=== PATIENT | male | born 1960 | race Caucasian/White ===

== ENCOUNTER 2021-01-02 15:05 | Inpatient (IN) ==
[2021-01-02 16:03] LABS: Appearance Urine Clear (Clear); Bilirubin Urine Negative (Negative); Blood Urine Negative (Negative); Color Urine Yellow; Glucose Urine UA Negative (Negative); Ketones Urine Trace (Negative); Leukocyte Esterase Urine Negative (Negative); Nitrite Urine Negative (Negative); Protein Urine Negative (Negative); Urobilinogen Urine Negative (Negative)
[2021-01-02 16:11] LABS: Basophils # (auto) 0.03 K/uL (0-0.2); Basophils % (auto) 0.3 %; Eosinophils # (auto) 0.07 K/uL (0-0.5); Eosinophils % (auto) 0.7 %; Hematocrit (blood only) 47.4 % (42-52); Hemoglobin 16.3 g/dL (14.0-18.0); Immature Granulocytes # (auto) 0.03 K/uL (0.00-0.02); Immature Granulocytes % (auto) 0.3 %; Lymphocytes # (auto) 2.07 K/uL (1.2-3.4); Lymphocytes % (auto) 21.5 %; Mean Corpuscular Hemoglobin 30.4 pg (25-34); Mean Corpuscular Hgb Conc 34.4 g/dL (32-36); Mean Corpuscular Volume 88.3 fL (80-100); Mean Platelet Volume 9.8 fL (7.4-10.4); Monocytes # (auto) 0.86 K/uL (0.11-0.59); Monocytes % (auto) 8.9 %; Neutrophils # (auto) 6.58 K/uL (1.4-6.5); Neutrophils % (auto) 68.3 %; Platelet Count 311 K/uL (130-400); RDW Coefficient of Variation 13.2 % (11.5-14.5); RDW Standard Deviation 42.6 fL (36.4-46.3); Red Blood Count 5.37 M/uL (4.7-6.1); White Blood Count 9.64 K/uL (4.8-10.8)
--- NOTE | 2021-01-02 16:30 | Emergency Department Note ---
History of Present Illness General Chief complaint: Mental Health Evaluation Stated complaint: DRUG/ ALCOHOL SCREENING Time Seen by Provider: 01/02/21 15:47 Source: patient Mode of arrival: ambulatory Limitations: no limitations History of Present Illness Provider complaint: mental health evaluation and screening This is a 60-year-old male presents the emergency department with family at bedside for a mental health evaluation. Patient was attempting to contact outside mental health providers due to concern for worsening depression and suicidal ideation. Patient vocalized to his brother suicidal ideation with a plan to go to a local gun range and shoot himself. Patient states he does have a chronic history of depression and used to take Wellbutrin for this. Patient states he has had passive suicidal ideation in the past. Patient recently has been using alcohol again and does have a prior history of alcohol abuse. He states he had been sober for 9 months prior to relapsing. He feels a lot of this was due to loss of employment, loss of residence, the recent of his . Patient denies any recent recreational drug use. States his last drink was this morning. States he typically drinks a 12 pack of beer. Pt seen during a time of high acuity and national emergency pandemic while wearing PPE. Home Medications Medication Instructions Recorded Confirmed Type bupropion HCl 150 mg PO DAILY 01/02/21 01/02/21 History Past Med/Surg History Medical History Alcohol abuse Depression Social History Smoking Status: Current every day smoker Preferred Language: French Feels Safe at Home: Yes Review of Systems See HPI for pertinent positives & negatives. and A total of 10 systems reviewed and were otherwise negative All systems reviewed & are unremarkable except as noted in HPI & below Physical Exam Vital Signs Vital Signs - 24 hr 01/02/21 23:30 01/03/21 08:14 Pulse Rate [Right Finger] 63 70 Respiratory Rate 20 17 Blood Pressure [Right Arm] 151/89 H 146/89 H Blood Pressure Mean [Right Arm] 109 108 Pulse Oximetry 99 97 Oxygen Delivery Method Room Air Room Air GENERAL: alert, well appearing, well nourished, no distress, non-toxic EYE EXAM: normal conjunctiva, PERRL and EOM's grossly intact OROPHARYNX: no exudate, no erythema, lips, buccal mucosa, and tongue normal and mucous membranes are moist NECK: supple, no nuchal rigidity, no adenopathy, non-tender LUNGS: Clear to auscultation. Normal chest wall mechanics, no w/r/r HEART: no murmurs, S1 normal and S2 normal ABDOMEN: abdomen soft, non-tender, normo-active bowel sounds, no masses, no rebound or guarding. BACK: Back is symmetrical on inspection and there is no deformity, no midline tenderness, no CVA tenderness. SKIN: no rashes and no bruising UPPER EXTREMITIES: upper extremities are grossly normal. FROM, nml pulses b/l. LOWER EXTREMITIES: No pitting edema. FROM, nml pulses b/l. NEURO EXAM: Normal sensorium, cranial nerves II-XII grossly intact, normal speech, no gross weakness of arms, no gross weakness of legs. Gross sensation intact. Course Course 1935: Patient was seen and evaluated by psychiatric skilled nursing case manager and referred to 3 S. Administered Medications Bupropion HCl (Bupropion Sr 150 Mg Tabcr) 150 mg PO DAILY DANIELA Stop: 02/02/21 15:29 Last Admin: 01/03/21 16:00 Dose: 150 mg Documented by: [id number] Nicotine (Nicotine 14 Mg/24 Hr Patch) 14 mg TD QAM DANIELA Stop: 02/02/21 08:59 Last Admin: 01/03/21 08:35 Dose: 14 mg Documented by: [id number] Non-Formulary Medication (Bupropion Hcl) 150 mg PO DAILY DANIELA Stop: 02/02/21 08:59 Last Admin: 01/03/21 14:26 Dose: Not Given Documented by: [id number] Discontinued Medications Lorazepam (Lorazepam 1 Mg Tab) 1 mg SL NOW STA Stop: 01/03/21 08:18 Last Admin: 01/03/21 08:35 Dose: 1 mg Documented by: [id number] Medical Decision Making Differential Diagnosis Differential diagnoses considered include mood disorder, infection, hypoglycemia, electrolyte abnormalities, cardiac sources, intracerebral event, toxicologic, neurologic, as well as others. Medical Records Attestation: I reviewed the patient's medical records. Home Medications Current Medication List: was personally reviewed by me Laboratory Data Attestation: I reviewed the patient's lab results. Result diagrams: 01/02/21 15:52 01/02/21 15:52 Lab Results 01/02/21 01/02/21 01/02/21 Range/Units 15:50 15:50 15:52 WBC 9.64 (4.8-10.8) K/uL RBC 5.37 (4.7-6.1) M/uL Hgb 16.3 (14.0-18.0) g/dL Hct 47.4 (42-52) % MCV 88.3 (80-100) fL MCH 30.4 (25-34) pg MCHC 34.4 (32-36) g/dL RDW Std Deviation 42.6 (36.4-46.3) fL RDW Coeff of Dean 13.2 (11.5-14.5) % Plt Count 311 (130-400) K/uL MPV 9.8 (7.4-10.4) fL Immature Gran % (Auto) 0.3 % Neut % (Auto) 68.3 % Lymph % (Auto) 21.5 % [place] % (Auto) 8.9 % Eos % (Auto) 0.7 % Baso % (Auto) 0.3 % Neut # (Auto) 6.58 H (1.4-6.5) K/uL Lymph # (Auto) 2.07 (1.2-3.4) K/uL [place] # (Auto) 0.86 H (0.11-0.59) K/uL Eos # (Auto) 0.07 (0-0.5) K/uL Baso # (Auto) 0.03 (0-0.2) K/uL Immature Gran # (Auto) 0.03 H (0.00-0.02) K/uL Sodium (136-145) mmol/L Potassium (3.5-5.1) mmol/L Chloride (98-107) mmol/L Carbon Dioxide (21-32) mmol/L Anion Gap (3-11) BUN (7-18) mg/dl Creatinine (0.6-1.4) mg/dl Est Cr Clr Drug Dosing ml/min Est GFR ( Amer) ml/min Est GFR (Non-Af Amer) ml/min BUN/Creatinine Ratio (10-20) Glucose (70-99) mg/dl Calcium (8.5-10.1) mg/dl Total Bilirubin (0.2-1) mg/dl AST (15-37) U/L ALT (12-78) U/L Alkaline Phosphatase (45-117) U/L Total Protein (6.4-8.2) gm/dl Albumin (3.4-5.0) gm/dl Globulin (2.5-4.0) gm/dl Albumin/Globulin Ratio (0.9-2) TSH (0.300-4.500) uIu/ml Specimen Hemolysis Urine Color Yellow Urine Appearance Clear (Clear) Urine pH 5.0 (4.5-7.5) Ur Specific [place] 1.010 (1.000-1.030) Urine Protein Negative (Negative) Urine Glucose (UA) Negative (Negative) Urine Ketones Trace H (Negative) Urine Blood Negative (Negative) Urine Nitrite Negative (Negative) Urine Bilirubin Negative (Negative) Urine Urobilinogen Negative (Negative) Ur Leukocyte Esterase Negative (Negative) Salicylates (2.8-20) mg/dl Urine Opiates Screen Neg (Neg) Ur Methadone, Qual Neg (Neg) Acetaminophen (10-30) ug/ml Urine Barbiturates Neg (Neg) Ur Phencyclidine (PCP) Neg (Neg) U Amphetamin/Meth Scrn Neg (Neg) MDMA (Ecstasy) Screen Neg (Neg) U Benzodiazepines Scrn Neg (Neg) Ur Cocaine Metabolite Neg (Neg) U Marijuana (THC) Screen Neg (Neg) Ethyl Alcohol mg/dL (0-3) mg/dl COVID-19 Eval Order SARS-CoV-2 (PCR) (Negative) 01/02/21 01/02/21 01/02/21 Range/Units 15:52 15:52 15:52 WBC (4.8-10.8) K/uL RBC (4.7-6.1) M/uL Hgb (14.0-18.0) g/dL Hct (42-52) % MCV (80-100) fL MCH (25-34) pg MCHC (32-36) g/dL RDW Std Deviation (36.4-46.3) fL RDW Coeff of Dean (11.5-14.5) % Plt Count (130-400) K/uL MPV (7.4-10.4) fL Immature Gran % (Auto) % Neut % (Auto) % Lymph % (Auto) % [place] % (Auto) % Eos % (Auto) % Baso % (Auto) % Neut # (Auto) (1.4-6.5) K/uL Lymph # (Auto) (1.2-3.4) K/uL [place] # (Auto) (0.11-0.59) K/uL Eos # (Auto) (0-0.5) K/uL Baso # (Auto) (0-0.2) K/uL Immature Gran # (Auto) (0.00-0.02) K/uL Sodium 138 (136-145) mmol/L Potassium 4.2 (3.5-5.1) mmol/L Chloride 105 (98-107) mmol/L Carbon Dioxide 23 (21-32) mmol/L Anion Gap 10.0 (3-11) BUN 10 (7-18) mg/dl Creatinine 0.73 (0.6-1.4) mg/dl Est Cr Clr Drug Dosing 116.6 ml/min Est GFR ( Amer) 116.0 ml/min Est GFR (Non-Af Amer) 100.1 ml/min BUN/Creatinine Ratio 13.2 (10-20) Glucose 99 (70-99) mg/dl Calcium 9.3 (8.5-10.1) mg/dl Total Bilirubin 0.4 (0.2-1) mg/dl AST 30 (15-37) U/L ALT 53 (12-78) U/L Alkaline Phosphatase 115 (45-117) U/L Total Protein 8.4 H (6.4-8.2) gm/dl Albumin 4.1 (3.4-5.0) gm/dl Globulin 4.3 H (2.5-4.0) gm/dl Albumin/Globulin Ratio 0.9 (0.9-2) TSH 2.090 (0.300-4.500) uIu/ml Specimen Hemolysis Urine Color Urine Appearance (Clear) Urine pH (4.5-7.5) Ur Specific [place] (1.000-1.030) Urine Protein (Negative) Urine Glucose (UA) (Negative) Urine Ketones (Negative) Urine Blood (Negative) Urine Nitrite (Negative) Urine Bilirubin (Negative) Urine Urobilinogen (Negative) Ur Leukocyte Esterase (Negative) Salicylates 2.7 L (2.8-20) mg/dl Urine Opiates Screen (Neg) Ur Methadone, Qual (Neg) Acetaminophen < 2 L (10-30) ug/ml Urine Barbiturates (Neg) Ur Phencyclidine (PCP) (Neg) U Amphetamin/Meth Scrn (Neg) MDMA (Ecstasy) Screen (Neg) U Benzodiazepines Scrn (Neg) Ur Cocaine Metabolite (Neg) U Marijuana (THC) Screen (Neg) Ethyl Alcohol mg/dL 7.9 H (0-3) mg/dl COVID-19 Eval Order SARS-CoV-2 (PCR) (Negative) 01/02/21 01/02/21 Range/Units 17:55 17:55 WBC (4.8-10.8) K/uL RBC (4.7-6.1) M/uL Hgb (14.0-18.0) g/dL Hct (42-52) % MCV (80-100) fL MCH (25-34) pg MCHC (32-36) g/dL RDW Std Deviation (36.4-46.3) fL RDW Coeff of Dean (11.5-14.5) % Plt Count (130-400) K/uL MPV (7.4-10.4) fL Immature Gran % (Auto) % Neut % (Auto) % Lymph % (Auto) % [place] % (Auto) % Eos % (Auto) % Baso % (Auto) % Neut # (Auto) (1.4-6.5) K/uL Lymph # (Auto) (1.2-3.4) K/uL [place] # (Auto) (0.11-0.59) K/uL Eos # (Auto) (0-0.5) K/uL Baso # (Auto) (0-0.2) K/uL Immature Gran # (Auto) (0.00-0.02) K/uL Sodium (136-145) mmol/L Potassium (3.5-5.1) mmol/L Chloride (98-107) mmol/L Carbon Dioxide (21-32) mmol/L Anion Gap (3-11) BUN (7-18) mg/dl Creatinine (0.6-1.4) mg/dl Est Cr Clr Drug Dosing ml/min Est GFR ( Amer) ml/min Est GFR (Non-Af Amer) ml/min BUN/Creatinine Ratio (10-20) Glucose (70-99) mg/dl Calcium (8.5-10.1) mg/dl Total Bilirubin (0.2-1) mg/dl AST (15-37) U/L ALT (12-78) U/L Alkaline Phosphatase (45-117) U/L Total Protein (6.4-8.2) gm/dl Albumin (3.4-5.0) gm/dl Globulin (2.5-4.0) gm/dl Albumin/Globulin Ratio (0.9-2) TSH (0.300-4.500) uIu/ml Specimen Hemolysis Urine Color Urine Appearance (Clear) Urine pH (4.5-7.5) Ur Specific [place] (1.000-1.030) Urine Protein (Negative) Urine Glucose (UA) (Negative) Urine Ketones (Negative) Urine Blood (Negative) Urine Nitrite (Negative) Urine Bilirubin (Negative) Urine Urobilinogen (Negative) Ur Leukocyte Esterase (Negative) Salicylates (2.8-20) mg/dl Urine Opiates Screen (Neg) Ur Methadone, Qual (Neg) Acetaminophen (10-30) ug/ml Urine Barbiturates (Neg) Ur Phencyclidine (PCP) (Neg) U Amphetamin/Meth Scrn (Neg) MDMA (Ecstasy) Screen (Neg) U Benzodiazepines Scrn (Neg) Ur Cocaine Metabolite (Neg) U Marijuana (THC) Screen (Neg) Ethyl Alcohol mg/dL (0-3) mg/dl COVID-19 Eval Order Covid19 at [facility] SARS-CoV-2 (PCR) NEGATIVE (Negative) MDM Narrative Patient here voluntarily due to worsening depression, several recent stressors, and history of alcohol abuse. Patient is here with family. Patient medically cleared and evaluated by case management for mental health. Patient referred to [facility]. Patient signed out to Dr. Workman is [facility]. was evaluating the patient for possible inpatient placement. Patient remains voluntary at this time. Impression & Plan Depression, Alcohol abuse, Suicidal ideation Discharge Plan Visit Data Chief Complaint: Mental Health Evaluation Stated Complaint: DRUG/ ALCOHOL SCREENING ED Provider: Ann Elizabeth Discharge Problem: Depression, Alcohol abuse, Suicidal ideation Forms Stand Alone Forms: [facility], Suicide Prevention Resources Prescriptions Prescriptions: No Action bupropion HCl 150 mg tablet 150 mg PO DAILY RF: 0 Referrals Referrals: PCP,NO [Primary Care Provider] - Discharge Problem: Depression Qualifiers: Depression Type: unspecified Qualified Code(s): F32.9 - Major depressive disorder, single episode, unspecified
[2021-01-02 16:39] LABS: Amphetamines+Metham, Urine Neg (Neg); Barbiturates, Urine Neg (Neg); Benzodiazepine, Urine Neg (Neg); Cocaine, Urine Neg (Neg); MDMA (Ecstacy), Urine Neg (Neg); Methadone, Urine Neg (Neg); Opiate, Urine Neg (Neg); Phencyclidine, Urine Neg (Neg)
[2021-01-02 16:41] LABS: Albumin Globulin Ratio 0.9 (0.9-2); Albumin Level 4.1 gm/dl (3.4-5.0); BUN Creatinine Ratio 13.2 (10-20); Bilirubin,Total 0.4 mg/dl (0.2-1); Calcium 9.3 mg/dl (8.5-10.1); Creatinine Clr Calc Pharmacy 116.6 ml/min; Est GFR (Non-African American) 100.1 ml/min; Globulin 4.3 gm/dl (2.5-4.0); Potassium 4.2 mmol/L (3.5-5.1); Thyroid Stimulating Hormone 2.09 uIu/ml (0.300-4.500); Total Protein 8.4 gm/dl (6.4-8.2)
[2021-01-02 16:54] LABS: Acetaminophen < 2 ug/ml (10-30)
[2021-01-02 16:55] LABS: Salicylate 2.7 mg/dl (2.8-20)
--- NOTE | 2021-01-03 01:33 | Emergency Department Note ---
ED Visit Note Patient is a 60-year-old male who presents the ER with a past medical history of depression and suicidal ideations with a plan to shoot himself with a gun initially seen by Dr. Rosales. Patient was medically cleared. Patient has been resting in the ER. Bed search has been continued. Patient was signed out to Dr. Freeman at change of shift. . : Depression Qualifiers: Depression Type: unspecified Qualified Code(s): F32.9 - Major depressive disorder, single episode, unspecified
--- NOTE | 2021-01-03 01:35 | Emergency Department Note ---
ED Visit Note ED Physician Sign Out Note: 60 yr old male with suicidal ideation with plan to shoot himself. Initially evaluated and medically cleared by Dr Rosales. Signed out to me by Dr Workman pending placement on voluntary basis. Signed out to Dr Elizabeth still pending placement. Reynold Freeman MD : Depression Qualifiers: Depression Type: unspecified Qualified Code(s): F32.9 - Major depressive disorder, single episode, unspecified
[2021-01-03] MEDS ORDERED: LORazepam 1 MG TAB SL STA ×2 (08:17→21:25)
[2021-01-03] MEDS: NICOTINE 14 MG/24 HR PATCH TD SCH (08:35)
[2021-01-03] MEDS: BUPROPION HCL 150 MG PO SCH (14:26)
--- NOTE | 2021-01-03 15:39 | Emergency Department Note ---
ED Visit Note I received this patient in signout at the change of shift from Dr. Freeman pending mental health bed search for inpatient admission. The delegate arrived in the emergency department and the 302 petitioning statement was signed. Patient made suicidal statements and gestures including driving to our area to "say goodbye" and has a plan. The patient did require 1 dose of p.o. Ativan for anxiety but did not exhibit any signs or symptoms of withdrawal. The bed search has been suspended and will resume tomorrow. Case has been signed out to Dr. Quinn at the change of shift pending final disposition. . : Depression Qualifiers: Depression Type: unspecified Qualified Code(s): F32.9 - Major depressive disorder, single episode, unspecified
[2021-01-03] MEDS: buPROPion SR 150 MG TABCR PO SCH (16:00)
--- NOTE | 2021-01-03 21:30 | Emergency Department Note ---
ED Visit Note The patient was taken in signout from Dr. Elizabeth at the change of shift. Please see that note for details. The patient was pending psychiatric placement. He was resting comfortably. He received Ativan this morning and did well with it. He requested another dose this evening and it was ordered. The patient was reassessed and was stable. Patient's case signed out to Dr. June at the change of shift. . : Depression Qualifiers: Depression Type: unspecified Qualified Code(s): F32.9 - Major depressive disorder, single episode, unspecified
--- NOTE | 2021-01-03 23:03 | Emergency Department Note ---
ED Visit Note This case was signed out to me at change of shift awaiting bed placement. The bed search was suspended The patient is resting comfortably. The case will be signed out to Dr. Werner at change of shift . : Depression Qualifiers: Depression Type: unspecified Qualified Code(s): F32.9 - Major depressive disorder, single episode, unspecified
[2021-01-04] MEDS: BUPROPION HCL 150 MG PO SCH (08:35)
[2021-01-04] MEDS ORDERED: LORazepam 1 MG TAB SL STA (09:43)
[2021-01-04] MEDS: NICOTINE 14 MG/24 HR PATCH TD SCH (09:53)
[2021-01-04] MEDS: buPROPion SR 150 MG TABCR PO SCH (09:53)
--- NOTE | 2021-01-04 14:51 | Emergency Department Note ---
ED Visit Note Assumed care from prior physician Dr. Werner. The patient has a known history of alcohol use and had been stating that he was getting it again raging kill himself. The patient is currently pending disposition and placement. Patient was the medically cleared seen and evaluated by the case maker. Patient was accepted for inpatient psychiatric treatment. . : Depression Qualifiers: Depression Type: unspecified Qualified Code(s): F32.9 - Major depressive disorder, single episode, unspecified
--- NOTE | 2021-01-04 14:51 | Emergency Department Note ---
ED Visit Note Patient was signed out to me awaiting placement. Placement still pending. Signed out to Dr. Hewitt. . : Depression Qualifiers: Depression Type: unspecified Qualified Code(s): F32.9 - Major depressive disorder, single episode, unspecified
[2021-01-04] MEDS ORDERED: BISMUTH SUBSALICYLATE LIQD 236 ML PO PRN (15:51)
[2021-01-04] MEDS ORDERED: hydrOXYzine HCl 25 MG TAB PO PRN (15:51)
[2021-01-04] MEDS ORDERED: SODIUM CHLORIDE 0.65% NA SOLN 45 ML (OCEAN) PRN (15:51)
[2021-01-04] MEDS ORDERED: MAGNESIUM HYDROXIDE SUSP 30 ML UDC PO PRN (15:51)
[2021-01-04] MEDS ORDERED: ALUMINUM/MAGNESIUM SUSP 30 ML UDC PO PRN (15:51)
[2021-01-04] MEDS ORDERED: ACETAMINOPHEN 325 MG TAB PO PRN (15:51)
[2021-01-04] MEDS ORDERED: diazePAM 5 MG TABLET PO PRN (17:20)
[2021-01-04] MEDS ORDERED: PATIENT'S ALLERGY INFO NEEDS ENTERED SCH (17:30)
[2021-01-05] MEDS ORDERED: buPROPion SR 150 MG TABCR PO SCH (09:00)
[2021-01-05] MEDS: NICOTINE 14 MG/24 HR PATCH TD SCH (09:20)
--- NOTE | 2021-01-05 15:21 | History & Physical ---
Date of Service January 05, 2021 Impression / Recommendations Impression This is a 60-year-old male who presented to the emergency department with complaints of passive suicidal ideation in the context of recent alcohol use and social situation. Although it was felt that patient could likely be served better on an outpatient basis, he lacked any ability to obtain outpatient services and due to his multiple risk factors will be admitted for purposes of safety and stabilization and medication management. Unclear to what extent medications will be able to address his issues as patient has acknowledged lifelong struggle with passive suicidal thoughts. It is believed that he will benefit from rehab services for his alcohol use as well as community resources for outpatient treatment. (1) Depression: The patient was admitted to the [facility] ([facility] unit) on every 15 minute checks (behavioral with suicide precautions for safety. The patient will participate in group, recreational, and milieu therapies and will be offered additional individual and family sessions as clinically appropriate. 01/05/2021atient will be restarted on Wellbutrin 150 mg p.o. every morning. Depression Type: unspecified Qualified Code(s): F32.9 - Major depressive disorder, single episode, unspecified (2) Alcohol abuse: The patient's use history suggests problematic substance use. Brief intervention was offered and accepted. Intervention was greater than 5 min in length and included assessing readiness to quit, advice on how to reduce or abstain, and to set a specific goal for this hospitalization. [employer] tree [employer] worker will also assist in anticipating barriers to sobriety and in problem-solving for solutions to those problems while arranging for referral to appropriate treatment. The patient is in contemplation stage with regards to transtheoretical model of change. The patient is advised to decrease consumption due to depressant effects and risk of interaction with prescription medications. The patient agreed to consider Rehab and will be provided with recovery materials to continue to educate self on how to cope with their condition without abusing substances. (3) Suicidal ideation: Acute suicidal ideation seems to be resolved at this time, as patient is acknowledging a desire to live and no active plans to harm himself. Protective Factors Assessment Employed: No Psychiatric History Identifying Data JEN OWENS is a 60-year-old M who currently stays with his brother, has a history of depression and alcoholism, and was admitted on 01/04/21 15:51 on a 302 involuntary commitment for depression with suicidal ideation. Chief Complaint "I just have no reason to live". History of Present Illness HPI as per case management "Met with the patient during Dr. Norman examination to complete Brief Assessment. The patient reports suicidal ideation with a plan to use a firearm (something quick and lethal) related to stressors of his wifes from cancer and not having a permanent residence (reports he was living in [place] and has no plans to return there and is currently living in a hotel locally since his brother lived in [place]). The patient reports a history of alcoholism and had been sober for 9 months, but recently started drinking again to self-medicate. The patient reports a history of taking Wellbutrin but hasnt taken it in awhile due to having no official residence. The patient reports he has had suicidal ideation since around the age of 15 but always had things to work for and live for, but recently he hasnt had these things. Medical clearance explained and patient is willing for treatment at this time. Met with the patient to complete Psychiatric Mental Health Evaluation. Patient continues to express suicidal ideation (scored a 23 on his suicide assessment) with a plan to use a firearm (quick and the highest success rate). Although the patient doesnt have access to a firearm currently, he states its not that difficult to get a gun. The patient reports his stressors a combination of his dying 3 years ago, currently being homeless and not really caring whether he lives or dies at this time. He reports he has been going through the motions recently and came to [place] to say his goodbyes to his brother. The patient reports he has had it with everything and its not that he wants to , but I couldnt come up with a reason not to live anymore. The patient reports he hasnt been eating or sleeping well recently (erratically for sleep), but that was mostly due to driving from [place] and not having access to food or places to sleep on a regular basis. The patient also reports that there as so many things in my head that have really messed with it. The patient reports his anxiety has been up and down, but he has resigned himself to the fact that its hard to be anxious when he doesnt care about things. The patient denies hallucination and delusional thinking but reports starting to drink about 3 weeks ago and drinks up to a 12 pack per day when he has the money. The patient reports he is currently homeless and doesnt have a plan for where he will live, but his original plan there wasnt going to be a plan since he was going to commit suicide (reports all of his belongings are currently in his car and his brother had been paying for him to say in a hotel). The patient is willing for treatment at this time and reports his brother talked him to into trying to get some health for his depression and suicidal ideation." Upon evaluation patient endorsed the above information is accurate. He denies any acute suicidal ideation at this time, and states that he has been dealing with depression and passive suicidal ideation almost his entire life. Patient states that he had thoughts of "what is the point of living" dating back to his late adolescence and early adulthood but was able to distract himself with jobs, relationships, or alcohol throughout his life. Patient states in the last several years he has taken a turn for the worse as he has been depressed and distraught over the loss of his from cancer approximately 3 years ago. Patient states sometime prior to that he had lost his job due to the company going bankrupt. Patient does not have any children or other sources of happiness in his life. He states that since that time his is passed he has sold his house used his money to rent an apartment and had been drinking pretty heavily. He states that he has now since run out of money and was evicted from his apartment in [place]. He states that he then decided that he has nothing left to live for and decided to come to [place] to visit his brother whom he has not spoken to in 19 years. Patient states that his brother was able to convince him to get enrolled in treatment however patient was unable to locate the appropriate resources. He presented to the emergency department for purposes of obtaining psychiatric and alcohol use treatment. Patient has been engaged in psychiatric treatment in the past, although never on an inpatient basis, and was formerly prescribed SSRIs and Wellbutrin to which he felt was somewhat helpful although unable to completely control his symptoms. Patient's SI is reported to be chronic and almost lifelong in nature, however he has had no prior attempts or gestures. He he does however presents numerous risk factors including age, gender, race, living situation, substance use. He is agreeable to proceed with treatment as he is stating that he would prefer to live. Agreeable to stabilize psychiatrically and obtain the appropriate resources for the next stages of his treatment including rehab. Denies any previous history of psychotic or manic symptoms. Denies any episodes of violence. Denies any current legal trouble. Past Psychiatric History Current Psychiatric Diagnosis: Mood d/o NOS Allergies Allergy/AdvReac Type Severity Reaction Status Date / Time cat dander Allergy Mild Unverified 01/04/21 18:26 Home Medications Medication Instructions Recorded Confirmed Type bupropion HCl 150 mg PO DAILY 01/02/21 01/02/21 History Family History Family History of: Doesn't Know Alcohol History Hx of Alcohol Use Over the Past 12 Months: Yes AUDIT Total Score: 28 Smoking Use Have You Smoked or Used Tobacco Products in the Last 30 Days: Yes tobacco type: cigarettes Smoking Status: Current every day smoker Smoking packs per day: 20 Substance History Hx of Prescription Med Misuse Over the Past 12 Months: No Hx of Over the Counter Med Misuse Over the Past 12 Months: No Hx of Inhalent Misuse Over the Past 12 Months: No Hx of Organic Substance Use Over the Past 12 Months: No Hx of Illegal Substances/Street Drug Use Over Past 12 Months: No Problems as a Result of Past Substance Use: None Identified Personal History Living Arrangements: Homeless Living Arrangements Comments: Pt has been homeless for the past 1 month Highest Grade Completed: Some College Highest Grade Completed Comment: BA History and some graduate work Marital Status: Beliefs That Will Affect Care: None Patient History Medical History Alcohol abuse Depression Social History Smoking Status: Current every day smoker Preferred Language: Hungarian Beliefs That Will Affect Care: None Feels Safe at Home: Yes Assistive Devices: Cane and Glasses Review of Systems Review of Systems: All systems reviewed & are unremarkable except as noted in HPI & below Physical Exam Psychiatric: Orientation: alert and oriented x 3 Apperance: appropriately groomed Eye Contact: good eye contact Motor Behavior: no abnormal motor movements Speech: normal rate/rhythm/volume of speech Affect: euthymic affect Mood: no depressed mood Thought Process: goal directed thought process Thought Content: reality based without delusions Suicidal Thoughts: denies suicidal plan and denies suicidal intent; + reports suicidal thoughts Homicidal Thoughts: denies homicidal thoughts, denies homicidal plan and denies homicidal intent Hallucinations: no auditory hallucinations and no visual hallucinations Cognition: recent memory grossly intact Estimated Intelligence: + above average estimated intelligence Insight: good insight Judgement: + fair judgement Vital Signs (Past 24 Hours): Last Vital Signs Temp 36.5 C 01/05/21 06:38 Pulse 61 01/05/21 06:39 Resp 16 01/05/21 06:38 BP 119/81 01/05/21 06:39 Pulse Ox 99 01/04/21 17:05 Results & Data ([facility]) Current Inpatient Medications Current Inpatient Medications: Current Inpatient Medications Acetaminophen (Acetaminophen 325 Mg Tab) 650 mg PO Q4H PRN PRN Reason: Headache or Minor Fever Stop: 02/03/21 15:50 Al Hydrox/Mg Hydrox/Simethicone (Aluminum/Magnesium Susp 30 Ml Udc) 30 ml PO Q4H PRN PRN Reason: GI Upset Stop: 02/03/21 15:50 Bismuth Subsalicylate (Bismuth Subsalicylate Liqd 236 Ml) 15 ml PO PRN PRN PRN Reason: Loose Stool Stop: 02/03/21 15:50 Bupropion HCl (Bupropion Sr 150 Mg Tabcr) 150 mg PO DAILY DANIELA Stop: 02/04/21 08:59 Last Admin: 01/05/21 09:15 Dose: 150 mg Documented by: Diazepam (Diazepam 5 Mg Tablet) 5 mg PO HS PRN PRN Reason: Anxiety Stop: 02/03/21 17:19 Hydroxyzine HCl (Hydroxyzine Hcl 25 Mg Tab) 50 mg PO HSZ PRN PRN Reason: Insomnia Stop: 02/03/21 15:50 Hydroxyzine HCl (Hydroxyzine Hcl 25 Mg Tab) 25 mg PO Q4H PRN PRN Reason: Anxiety Stop: 02/03/21 15:50 Last Admin: 01/04/21 18:33 Dose: 25 mg Documented by: Magnesium Hydroxide (Magnesium Hydroxide Susp 30 Ml Udc) 30 ml PO DAILY PRN PRN Reason: Constipation Stop: 02/03/21 15:50 Miscellaneous (Remove Nicoderm Patch) 1 ea N/A DAILY@0859 [facility] Stop: 02/02/21 08:58 Last Admin: 01/05/21 09:20 Dose: 1 ea Documented by: Nicotine (Nicotine 14 Mg/24 Hr Patch) 14 mg TD QAM [facility] Stop: 02/02/21 08:59 Last Admin: 01/05/21 09:20 Dose: 14 mg Documented by: Sodium Chloride (Sodium Chloride 0.65% Na Soln 45 Ml ([place])) 1 - 2 sprays NA PRN PRN PRN Reason: Nasal Dryness/Congestion Stop: 02/03/21 15:50
[2021-01-05] MEDS: QUEtiapine FUMARATE 25 MG TABLET PO PRN (21:19)
[2021-01-06] MEDS: buPROPion XL 150 MG TABCR PO SCH (08:22)
[2021-01-06] MEDS: NICOTINE 14 MG/24 HR PATCH TD SCH (08:33)
--- NOTE | 2021-01-06 10:17 | Psychiatric Progress Note ---
Date of Service January 06, 2021 Impression / Recommendations Impression This is a 60-year-old male who presented to the emergency department with complaints of passive suicidal ideation in the context of recent alcohol use and social situation. Although it was felt that patient could likely be served better on an outpatient basis, he lacked any ability to obtain outpatient services and due to his multiple risk factors will be admitted for purposes of safety and stabilization and medication management. Unclear to what extent medications will be able to address his issues as patient has acknowledged lifelong struggle with passive suicidal thoughts. It is believed that he will benefit from rehab services for his alcohol use as well as community resources for outpatient treatment. (1) Depression: The patient was admitted to the [facility] ([facility]) on every 15 minute checks (behavioral with suicide precautions for safety. The patient will participate in group, recreational, and milieu therapies and will be offered additional individual and family sessions as clinically appropriate. 01/06/2021Wellbutrin SR exchanged for Wellbutrin XL 150 mg p.o. every morning. 01/05/2021atient will be restarted on Wellbutrin 150 mg p.o. every morning. (2) Alcohol abuse: The patient's use history suggests problematic substance use. Brief intervention was offered and accepted. Intervention was greater than 5 min in length and included assessing readiness to quit, advice on how to reduce or abstain, and to set a specific goal for this hospitalization. landing worker will also assist in anticipating barriers to sobriety and in problem-solving for solutions to those problems while arranging for referral to appropriate treatment. The patient is in contemplation stage with regards to transtheoretical model of change. The patient is advised to decrease consumption due to depressant effects and risk of interaction with prescription medications. The patient ag skylar to consider Rehab and will be provided with recovery materials to continue to educate self on how to cope with their condition without abusing substances. (3) Suicidal ideation: Acute suicidal ideation seems to be resolved at this time, as patient is acknowledging a desire to live and no active plans to harm himself. Protective Factors Assessment Employed: No Interval History Chief Complaint "Good morning". Review of Systems Sleep Information Total Hours of Sleep: 7.75 Meal Information Percent Meal Consumed - Breakfast: 100 Percent Meal Consumed - Lunch: 100 Percent Meal Consumed - Dinner: 100 Subjective Subjective Patient seen, chart reviewed and case discussed with treatment team, nursing and social work. Patient reports a good night of sleep and strong appetite. No side effects reported or observed. Regarding mood, patient reports some improvement which they attribute to the medications as well as the therapy they have received on the unit. Continues to do well and engage appropriately with peers as well as attending group and participate meaningfully. I spent 30 minutes with the patient, 50% of which was dedicated to counselling and coordination of care. Physical Exam Psychiatric Orientation: alert and oriented x 3 Apperance: appropriately groomed Eye Contact: good eye contact Motor Behavior: no abnormal motor movements Speech: normal rate/rhythm/volume of speech Affect: euthymic affect Mood: no depressed mood Thought Process: goal directed thought process Thought Content: reality based without delusions Suicidal Thoughts: denies suicidal plan and denies suicidal intent; + reports suicidal thoughts Homicidal Thoughts: denies homicidal thoughts, denies homicidal plan and denies homicidal intent Hallucinations: no auditory hallucinations and no visual hallucinations Cognition: recent memory grossly intact Estimated Intelligence: + above average estimated intelligence Insight: good insight Judgement: + fair judgement Vital Signs (Past 24 Hours) Last Vital Signs Temp 36.5 C 01/06/21 06:42 Pulse 70 01/06/21 06:42 Resp 16 01/06/21 06:42 BP 128/84 01/06/21 06:42 Pulse Ox 99 01/04/21 17:05 Results & Data ([facility]) Current Inpatient Medications Current Inpatient Medications: Current Inpatient Medications Acetaminophen (Acetaminophen 325 Mg Tab) 650 mg PO Q4H PRN PRN Reason: Headache or Minor Fever Stop: 02/03/21 15:50 Al Hydrox/Mg Hydrox/Simethicone (Aluminum/Magnesium Susp 30 Ml Udc) 30 ml PO Q4H PRN PRN Reason: GI Upset Stop: 02/03/21 15:50 Bismuth Subsalicylate (Bismuth Subsalicylate Liqd 236 Ml) 15 ml PO PRN PRN PRN Reason: Loose Stool Stop: 02/03/21 15:50 Bupropion HCl (Bupropion Xl 150 Mg Tabcr) 150 mg PO QAM DANIELA Stop: 02/05/21 08:59 Last Admin: 01/06/21 08:22 Dose: 150 mg Documented by: Hydroxyzine HCl (Hydroxyzine Hcl 25 Mg Tab) 50 mg PO HSZ PRN PRN Reason: Insomnia Stop: 02/03/21 15:50 Hydroxyzine HCl (Hydroxyzine Hcl 25 Mg Tab) 25 mg PO Q4H PRN PRN Reason: Anxiety Stop: 02/03/21 15:50 Last Admin: 01/04/21 18:33 Dose: 25 mg Documented by: Magnesium Hydroxide (Magnesium Hydroxide Susp 30 Ml Udc) 30 ml PO DAILY PRN PRN Reason: Constipation Stop: 02/03/21 15:50 Miscellaneous (Remove Nicoderm Patch) 1 ea N/A DAILY@0859 [facility] Stop: 02/02/21 08:58 Last Admin: 01/06/21 08:22 Dose: 1 ea Documented by: Nicotine (Nicotine 14 Mg/24 Hr Patch) 14 mg TD QAM [facility] Stop: 02/02/21 08:59 Last Admin: 01/06/21 08:33 Dose: 14 mg Documented by: Quetiapine Fumarate (Quetiapine Fumarate 25 Mg Tablet) 25 mg PO HS PRN PRN Reason: Insomnia Stop: 02/04/21 21:59 Last Admin: 01/05/21 21:19 Dose: 25 mg Documented by: Sodium Chloride (Sodium Chloride 0.65% Na Soln 45 Ml ([place])) 1 - 2 sprays NA PRN PRN PRN Reason: Nasal Dryness/Congestion Stop: 02/03/21 15:50 Mental Health & Subst Abuse Tx Therapist Name of Therapist: Denies Manager Universal Name of Manager Universal: Denies Post Discharge Appointments Contact Information Discharge (1) Depression Depression Type: unspecified Qualified Code(s): F32.9 - Major depressive disorder, single episode, unspecified
[2021-01-06] MEDS: QUEtiapine FUMARATE 25 MG TABLET PO PRN (21:44)
[2021-01-06] MEDS: hydrOXYzine HCl 25 MG TAB PO PRN (21:44)
[2021-01-07] MEDS: NICOTINE 14 MG/24 HR PATCH TD SCH (09:18)
[2021-01-07] MEDS: buPROPion XL 150 MG TABCR PO SCH (09:19)
--- NOTE | 2021-01-07 14:03 | Psychiatric Progress Note ---
Date of Service January 07, 2021 Impression / Recommendations Impression This is a 60-year-old male who presented to the emergency department with complaints of passive suicidal ideation in the context of recent alcohol use and social situation. Although it was felt that patient could likely be served better on an outpatient basis, he lacked any ability to obtain outpatient services and due to his multiple risk factors will be admitted for purposes of safety and stabilization and medication management. Unclear to what extent medications will be able to address his issues as patient has acknowledged lifelong struggle with passive suicidal thoughts. It is believed that he will benefit from rehab services for his alcohol use as well as community resources for outpatient treatment. (1) Depression: The patient was admitted to the [facility] ([facility]) on every 15 minute checks (behavioral with suicide precautions for safety. The patient will participate in group, recreational, and milieu therapies and will be offered additional individual and family sessions as clinically appropriate. 01/07/2021atient continues to do well, making incremental progress. 01/06/2021Wellbutrin SR exchanged for Wellbutrin XL 150 mg p.o. every morning. 01/05/2021atient will be restarted on Wellbutrin 150 mg p.o. every morning. (2) Alcohol abuse: The patient's use history suggests problematic substance use. Brief intervention was offered and accepted. Intervention was greater than 5 min in length and included assessing readiness to quit, advice on how to reduce or abst ain, and to set a specific goal for this hospitalization. grove worker will also assist in anticipating barriers to sobriety and in problem-solving for solutions to those problems while arranging for referral to appropriate treatment. The patient is in contemplation stage with regards to transtheoretical model of change. The patient is advised to decrease consumption due to depressant effects and risk of interaction with prescription medications. The patient agreed to consider Rehab and will be provided with recovery materials to continue to educate self on how to cope with their condition without abusing substances. (3) Suicidal ideation: Acute suicidal ideation seems to be resolved at this time, as patient is acknowledging a desire to live and no active plans to harm himself. Protective Factors Assessment Employed: No Interval History Chief Complaint "Thank you so much for all your help". Review of Systems Sleep Information Total Hours of Sleep: 8 Meal Information Percent Meal Consumed - Breakfast: 100 Percent Meal Consumed - Lunch: 100 Percent Meal Consumed - Dinner: 100 Subjective Subjective Patient seen, chart reviewed and case discussed with treatment team, nursing and social work. Patient reports a good night of sleep and decent appetite. No side effects reported or observed. Regarding mood, patient reports some improvement which they attribute to the medications as well as the therapy they have received on the unit. He reports that he will still have bouts of depression and that his mood seems to be labile during the day. Patient is thankful for the restarting of his medications here and is eager to begin his neck steps on his path to recovery and reintegration into the community. He is complaining of some nerve pain in his bilateral feet which had formally responded well to gabapentin therapy. Patient is willing to do another trial of gabapentin therapy. I spent 30 minutes with the patient, 50% of which was dedicated to counselling and coordination of care. Physical Exam Psychiatric Orientation: alert and oriented x 3 Apperance: appropriately groomed Eye Contact: good eye contact Motor Behavior: no abnormal motor movements Speech: normal rate/rhythm/volume of speech Affect: euthymic affect Mood: no depressed mood Thought Process: goal directed thought process Thought Content: reality based without delusions Suicidal Thoughts: denies suicidal plan and denies suicidal intent; + reports suicidal thoughts Homicidal Thoughts: denies homicidal thoughts, denies homicidal plan and denies homicidal intent Hallucinations: no auditory hallucinations and no visual hallucinations Cognition: recent memory grossly intact Estimated Intelligence: + above average estimated intelligence Insight: good insight Judgement: + fair judgement Vital Signs (Past 24 Hours) Last Vital Signs Temp 36.5 C 01/07/21 07:06 Pulse 68 01/07/21 07:06 Resp 16 01/07/21 07:06 BP 128/89 01/07/21 07:06 Pulse Ox 99 01/04/21 17:05 Results & Data (U) Current Inpatient Medications Current Inpatient Medications: Current Inpatient Medications Acetaminophen (Acetaminophen 325 Mg Tab) 650 mg PO Q4H PRN PRN Reason: Headache or Minor Fever Stop: 02/03/21 15:50 Al Hydrox/Mg Hydrox/Simethicone (Aluminum/Magnesium Susp 30 Ml Udc) 30 ml PO Q4H PRN PRN Reason: GI Upset Stop: 02/03/21 15:50 Bismuth Subsalicylate (Bismuth Subsalicylate Liqd 236 Ml) 15 ml PO PRN PRN PRN Reason: Loose Stool Stop: 02/03/21 15:50 Bupropion HCl (Bupropion Xl 150 Mg Tabcr) 150 mg PO QAM DANIELA Stop: 02/05/21 08:59 Last Admin: 01/07/21 09:19 Dose: 150 mg Documented by: Hydroxyzine HCl (Hydroxyzine Hcl 25 Mg Tab) 50 mg PO HSZ PRN PRN Reason: Insomnia Stop: 02/03/21 15:50 Last Admin: 01/06/21 21:44 Dose: 50 mg Documented by: Hydroxyzine HCl (Hydroxyzine Hcl 25 Mg Tab) 25 mg PO Q4H PRN PRN Reason: Anxiety Stop: 02/03/21 15:50 Last Admin: 01/04/21 18:33 Dose: 25 mg Documented by: Magnesium Hydroxide (Magnesium Hydroxide Susp 30 Ml Udc) 30 ml PO DAILY PRN PRN Reason: Constipation Stop: 02/03/21 15:50 Miscellaneous (Remove Nicoderm Patch) 1 ea N/A DAILY@[id number] [facility] Stop: 02/02/21 08:58 Last Admin: 01/07/21 09:21 Dose: 1 ea Documented by: Nicotine (Nicotine 14 Mg/24 Hr Patch) 14 mg TD QAM [facility] Stop: 02/02/21 08:59 Last Admin: 01/07/21 09:18 Dose: 14 mg Documented by: Quetiapine Fumarate (Quetiapine Fumarate 25 Mg Tablet) 25 mg PO HS PRN PRN Reason: Insomnia Stop: 02/04/21 21:59 Last Admin: 01/06/21 21:44 Dose: 25 mg Documented by: Sodium Chloride (Sodium Chloride 0.65% Na Soln 45 Ml ([place])) 1 - 2 sprays NA PRN PRN PRN Reason: Nasal Dryness/Congestion Stop: 02/03/21 15:50 Mental Health & Subst Abuse Tx Psychiatrist Name of Psychiatrist: None Therapist Name of Therapist: None Asphalt Paving Superintendent Name of Asphalt Paving Superintendent: GRETAU- Kareen Phone Number for Asphalt Paving Superintendent: Case Management Appointment Comment: [address], [place] [address] Post Discharge Appointments Primary Care Physician Name Of Family Doctor: None Contact Information Discharge (1) Depression Depression Type: unspecified Qualified Code(s): F32.9 - Major depressive disorder, single episode, unspecified
[2021-01-07] MEDS: GABAPENTIN 300 MG CAP PO SCH (20:49)
[2021-01-07] MEDS: QUEtiapine FUMARATE 25 MG TABLET PO PRN (20:49)
[2021-01-07] MEDS: hydrOXYzine HCl 25 MG TAB PO PRN (20:49)
[2021-01-08] MEDS: GABAPENTIN 300 MG CAP PO SCH (08:41)
[2021-01-08] MEDS: NICOTINE 14 MG/24 HR PATCH TD SCH (08:41)
[2021-01-08] MEDS: buPROPion XL 150 MG TABCR PO SCH (08:41)
[2021-01-08] MEDS ORDERED: DESTROY THIS MEDICATION ONE (08:58)
--- NOTE | 2021-01-08 09:19 | Discharge Summary ---
Date of Service January 08, 2021 History of Present Illness HPI as per case management "Met with the patient during Dr. Norman examination to complete Brief Assessment. The patient reports suicidal ideation with a plan to use a firearm (something quick and lethal) related to stressors of his wifes from cancer and not having a permanent residence (reports he was living in [place] and has no plans to return there and is currently living in a hotel locally since his brother lived in [place]). The patient reports a history of alcoholism and had been sober for 9 months, but recently started drinking again to self-medicate. The patient reports a history of taking Wellbutrin but hasnt taken it in awhile due to having no official residence. The patient reports he has had suicidal ideation since around the age of 15 but always had things to work for and live for, but recently he hasnt had these things. Medical clearance explained and patient is willing for treatment at this time. Met with the patient to complete Psychiatric Mental Health Evaluation. Patient continues to express suicidal ideation (scored a 23 on his suicide assessment) with a plan to use a firearm (quick and the highest success rate). Although the patient doesnt have access to a firearm currently, he states its not that difficult to get a gun. The patient reports his stressors a combination of his dying 3 years ago, currently being homeless and not really caring whether he lives or dies at this time. He reports he has been going through the motions recently and came to [place] to say his goodbyes to his brother. The patient reports he has had it with everything and its not that he wants to , but I couldnt come up with a reason not to live anymore. The patient reports he hasnt been eating or sleeping well recently (erratically for sleep), but that was mostly due to driving from [place] and not having access to food or places to sleep on a regular basis. The patient also reports that there as so many things in my head that have really messed with it. The patient reports his anxiety has been up and down, but he has resigned himself to the fact that its hard to be anxious when he doesnt care about things. The patient denies hallucination and delusional thinking but reports starting to drink about 3 weeks ago and drinks up to a 12 pack per day when he has the money. The patient reports he is currently homeless and doesnt have a plan for where he will live, but his original plan there wasnt going to be a plan since he was going to commit suicide (reports all of his belongings are currently in his car and his brother had been paying for him to say in a hotel). The patient is willing for treatment at this time and reports his brother talked him to into trying to get some health for his depression and suicidal ideation." Upon evaluation patient endorsed the above information is accurate. He denies any acute suicidal ideation at this time, and states that he has been dealing with depression and passive suicidal ideation almost his entire life. Patient states that he had thoughts of "what is the point of living" dating back to his late adolescence and early adulthood but was able to distract himself with jobs, relationships, or alcohol throughout his life. Patient states in the last several years he has taken a turn for the worse as he has been depressed and distraught over the loss of his from cancer approximately 3 years ago. Patient states sometime prior to that he had lost his job due to the company going bankrupt. Patient does not have any children or other sources of happiness in his life. He states that since that time his is passed he has sold his house used his money to rent an apartment and had been drinking pretty heavily. He states that he has now since run out of money and was evicted from his apartment in [place]. He states that he then decided that he has nothing left to live for and decided to come to [place] to visit his brother whom he has not spoken to in 19 years. Patient states that his brother was able to convince him to get enrolled in treatment however patient was unable to locate the appropriate resources. He presented to the emergency department for purposes of obtaining psychiatric and alcohol use treatment. Patient has been engaged in psychiatric treatment in the past, although never on an inpatient basis, and was formerly prescribed SSRIs and Wellbutrin to which he felt was somewhat helpful although unable to completely control his symptoms. Patient's SI is reported to be chronic and almost lifelong in nature, however he has had no prior attempts or gestures. He he does however presents numerous risk factors including age, gender, race, living situation, substance use. He is agreeable to proceed with treatment as he is stating that he would prefer to live. Agreeable to stabilize psychiatrically and obtain the appropriate resources for the next stages of his treatment including rehab. Denies any previous history of psychotic or manic symptoms. Denies any episodes of violence. Denies any current legal trouble. Physical Exam Psychiatric Orientation: alert and oriented x 3 Apperance: appropriately groomed Eye Contact: good eye contact Motor Behavior: no abnormal motor movements Speech: normal rate/rhythm/volume of speech Affect: euthymic affect Mood: no depressed mood Thought Process: goal directed thought process Thought Content: reality based without delusions Suicidal Thoughts: denies suicidal plan and denies suicidal intent; + reports s uicidal thoughts Homicidal Thoughts: denies homicidal thoughts, denies homicidal plan and denies homicidal intent Hallucinations: no auditory hallucinations and no visual hallucinations Cognition: recent memory grossly intact Estimated Intelligence: + above average estimated intelligence Insight: good insight Judgement: + fair judgement Vital Signs (Past 24 Hours) Last Vital Signs Temp 36.6 C 01/08/21 06:48 Pulse 77 01/08/21 06:48 Resp 18 01/08/21 06:48 BP 113/73 01/08/21 06:48 Pulse Ox 99 01/04/21 17:05 Principal Diagnosis Major Depressive Disorder Psychiatric Data See daily stay summary. In short, safety was maintained, and the patient was cooperative with care. Medication changes included addition of Wellbutrin and Gabapentin to regimen and they tolerated this well. A family session was held and safety plan was completed prior to discharge. Day of Discharge Assessment Today the patient voices readiness for discharge. They note improvement in mood and deny thoughts to harm self or others. Thoughts remain organized and they are improved from admission. There is no evidence of psychosis. They agree to take medications as prescribed and keep follow-up appointments. They are stable for discharge to outpatient level of care. Advance Directives Advance Directives Information Provided: Yes Advance Directives: No Mental Health Advance Directive: No Advance Directives on File: No Living Will: No Power of Manager Mass: No Advance Directives Reason:: Declines as Mental Health Visit. Protective Factors Assessment Employed: No Discharge Data Lab Results 01/02/21 01/02/21 01/02/21 15:50 15:50 15:52 WBC 9.64 RBC 5.37 Hgb 16.3 Hct 47.4 MCV 88.3 MCH 30.4 MCHC 34.4 RDW Std Deviation 42.6 RDW Coeff of Dean 13.2 Plt Count 311 MPV 9.8 Immature Gran % (Auto) 0.3 Neut % (Auto) 68.3 Lymph % (Auto) 21.5 [place] % (Auto) 8.9 Eos % (Auto) 0.7 Baso % (Auto) 0.3 Neut # (Auto) 6.58 H Lymph # (Auto) 2.07 [place] # (Auto) 0.86 H Eos # (Auto) 0.07 Baso # (Auto) 0.03 Immature Gran # (Auto) 0.03 H Sodium Potassium Chloride Carbon Dioxide Anion Gap BUN Creatinine Est Cr Clr Drug Dosing Est GFR ( Amer) Est GFR (Non-Af Amer) BUN/Creatinine Ratio Glucose Calcium Total Bilirubin AST ALT Alkaline Phosphatase Total Protein Albumin Globulin Albumin/Globulin Ratio TSH Specimen Hemolysis Urine Color Yellow Urine Appearance Clear Urine pH 5.0 Ur Specific [place] 1.010 Urine Protein Negative Urine Glucose (UA) Negative Urine Ketones Trace H Urine Blood Negative Urine Nitrite Negative Urine Bilirubin Negative Urine Urobilinogen Negative Ur Leukocyte Esterase Negative Salicylates Urine Opiates Screen Neg Ur Methadone, Qual Neg Acetaminophen Urine Barbiturates Neg Ur Phencyclidine (PCP) Neg U Amphetamin/Meth Scrn Neg MDMA (Ecstasy) Screen Neg U Benzodiazepines Scrn Neg Ur Cocaine Metabolite Neg U Marijuana (THC) Screen Neg Ethyl Alcohol mg/dL COVID-19 Eval Order SARS-CoV-2 (PCR) 01/02/21 01/02/21 01/02/21 15:52 15:52 15:52 WBC RBC Hgb Hct MCV MCH MCHC RDW Std Deviation RDW Coeff of Dean Plt Count MPV Immature Gran % (Auto) Neut % (Auto) Lymph % (Auto) [place] % (Auto) Eos % (Auto) Baso % (Auto) Neut # (Auto) Lymph # (Auto) [place] # (Auto) Eos # (Auto) Baso # (Auto) Immature Gran # (Auto) Sodium 138 Potassium 4.2 Chloride 105 Carbon Dioxide 23 Anion Gap 10.0 BUN 10 Creatinine 0.73 Est Cr Clr Drug Dosing 116.6 Est GFR ( Amer) 116.0 Est GFR (Non-Af Amer) 100.1 BUN/Creatinine Ratio 13.2 Glucose 99 Calcium 9.3 Total Bilirubin 0.4 AST 30 ALT 53 Alkaline Phosphatase 115 Total Protein 8.4 H Albumin 4.1 Globulin 4.3 H Albumin/Globulin Ratio 0.9 TSH 2.090 Specimen Hemolysis Urine Color Urine Appearance Urine pH Ur Specific [place] Urine Protein Urine Glucose (UA) Urine Ketones Urine Blood Urine Nitrite Urine Bilirubin Urine Urobilinogen Ur Leukocyte Esterase Salicylates 2.7 L Urine Opiates Screen Ur Methadone, Qual Acetaminophen < 2 L Urine Barbiturates Ur Phencyclidine (PCP) U Amphetamin/Meth Scrn MDMA (Ecstasy) Screen U Benzodiazepines Scrn Ur Cocaine Metabolite U Marijuana (THC) Screen Ethyl Alcohol mg/dL 7.9 H COVID-19 Eval Order SARS-CoV-2 (PCR) 01/02/21 01/02/21 17:55 17:55 WBC RBC Hgb Hct MCV MCH MCHC RDW Std Deviation RDW Coeff of [place] Plt Count MPV Immature Gran % (Auto) Neut % (Auto) Lymph % (Auto) [place] % (Auto) Eos % (Auto) Baso % (Auto) Neut # (Auto) Lymph # (Auto) [place] # (Auto) Eos # (Auto) Baso # (Auto) Immature Gran # (Auto) Sodium Potassium Chloride Carbon Dioxide Anion Gap BUN Creatinine Est Cr Clr Drug Dosing Est GFR ( Amer) Est GFR (Non-Af Amer) BUN/Creatinine Ratio Glucose Calcium Total Bilirubin AST ALT Alkaline Phosphatase Total Protein Albumin Globulin Albumin/Globulin Ratio TSH Specimen Hemolysis Urine Color Urine Appearance Urine pH Ur Specific [place] Urine Protein Urine Glucose (UA) Urine Ketones Urine Blood Urine Nitrite Urine Bilirubin Urine Urobilinogen Ur Leukocyte Esterase Salicylates Urine Opiates Screen Ur Methadone, Qual Acetaminophen Urine Barbiturates Ur Phencyclidine (PCP) U Amphetamin/Meth Scrn MDMA (Ecstasy) Screen U Benzodiazepines Scrn Ur Cocaine Metabolite U Marijuana (THC) Screen Ethyl Alcohol mg/dL COVID-19 Eval Order Covid19 at [facility] SARS-CoV-2 (PCR) NEGATIVE Hospital Course (1) Depression: The [facility]) on every 15 minute checks (behavioral with suicide precautions for safety. The patient will participate in group, recreational, and milieu therapies and will be offered additional individual and family sessions as clinically appropriate. Patient was started on Wellbutrin 150mg ER which he tolerated well. He complained of some neuropathic foot pain and was started on gabapentin which also helped with anxiety. He utilized Hydroxyzine and Seroquel, low dose, for sleep to good effect. (2) Alcohol abuse: Patient was agreeable to rehab and is attending Rehab following his discharge (3) Suicidal ideation: Patient's Suicidal ideation was resolved almost immediately after admission. Patient admits the thoughts are fleeting and of a chronic nature having been present almost his entire life. Mental Health & Subst Abuse Tx Psychiatrist Name of Psychiatrist: None Therapist Name of Therapist: None Lan Administrator Name of Lan Administrator: GRETAU- Kareen Phone Number for Lan Administrator: Case Management Appointment Comment: [address] [place] [address] Lan Administrator Release of Information: Obtained, Reviewed and Signed Post Discharge Appointments Primary Care Physician Name Of Family Doctor: None Other #1: Name of Aftercare Appointment: [facility] Phone Number of Aftercare Appointment: Date of Aftercare Appointment: 01/08/21 Time of Aftercare Appointment: 10:00 a.m. Pick-up Aftercare Appointment Comment: [address], [place] [address] Release of Information Aftercare Appointment: Obtained, Reviewed and Signed Contact Information Discharge Discharge Plan Discharge Items Patient Disposition: Home - Self-Care Reason For Visit: SUICIDAL IDEATION Discharge Diagnosis: Major Depressive Disorder Activity: Resume your previous activity Non-emergency contact: Primary Care Provider, Psychiatrist and Therapist Call non-emergency contact if: you have any medication questions and your symptoms worsen Follow-up/Referrals: PCP,NO [Primary Care Provider] - Diet: Regular Addtl Attending Provider Instructions: SPECIAL CARE INSTRUCTIONS: 1. Follow through with your scheduled aftercare appointments. If unable to keep an appointment, please call to reschedule. 2. Take your medication only as prescribed. Medication should not be changed or stopped without the approval of your doctor. In the event of worsening symptoms or concerns about side effects, contact your doctor immediately. 3. Utilize new healthy coping skills, anger management skills, and stress management skills learned during your hospitalization. Journal feelings and process them with a support person. Identify stressors or situations that may result in relapse, deterioration or inappropriate behaviors and develop a plan to deal with those issues. 4. If your coping skills are ineffective and you are in crisis, contact your outpatient providers for direction. If unable to reach your providers, please call the [facility] CRISIS LINE AT , go to the [facility] walk-in center at [address], [address], [place], or go to the closest Emergency Room. 5. Avoid alcohol and un-prescribed drugs. 6. You have been provided with the Mental Health Advance Directives Pamphlet for your review. AFTERCARE APPOINTMENTS: * Please call your insurance company prior to your scheduled appointment to confirm your aftercare providers are covered. Take your insurance information to your appointments. WHO TO CALL AND WHEN: Medical Emergencies: For questions or emergencies related to your hospital stay, please contact the Inpatient Behavioral Health Unit at [phone]. A monotypist is on-call 07/01 for the Behavioral Health Unit for emergencies At any time you feel your situation is an emergency, you may also call 911 immediately. Pending Studies at Discharge: No Stand-Alone Forms: My [facility] [employer] Stre[employer] Music, Smoking Cessation Medications and DC Order Prescriptions: New quetiapine 25 mg Tablet 25 mg PO HS PRN (Reason: insomnia) 30 Days Qty: 30 RF: 0 gabapentin 300 mg Capsule 300 mg PO TID 30 Days Qty: 90 RF: 0 bupropion HCl 150 mg Tablet Extended Release 24 Hr 150 mg PO QAM 30 Days Qty: 30 RF: 0 hydroxyzine HCl 25 mg Tablet 50 mg PO HSZ PRNQty: 0 RF: 0 Discontinued bupropion HCl 150 mg tablet 150 mg PO DAILY RF: 0 Discharge Orders: Discharge Order (Routine); Ordered 01/08/21 Ordered By: Kirit Murray Admission Data Admit Date/Time: 01/04/21 15:51 Attending Provider: Kirit Murray Admit Provider: Kirit Murray Primary Care Provider: PCP,JEREMY Coding Level of Care Code 69963 D/C day mgmt 30 min or < Diagnoses Depression F32.9 Depression Type: unspecified Alcohol abuse F10.10 Suicidal ideation R45.851
== END 2021-01-08 10:00 | disposition other institution (70) | DRG 881 ==
LOC: ED 15:05 → 3S 01-04 15:51